=== PATIENT | male | born 1980 | race Two or more races ===

== ENCOUNTER 2018-10-25 18:26 | Emergency (ER) | payer SELFPAY ==
[2018-10-25 19:30] LABS: CHLORIDE,CL 107 mmol/L (98-107); SODIUM,NA 144 mmol/L (136-148)
--- NOTE | 2018-10-25 19:56 | CR ---
INDICATION: Lower abdominal pain 1 month TECHNIQUE: Abdominal radiograph 2 views COMPARISON: None FINDINGS: Bowel: Mild nonspecific gaseous distention of the splenic flexure is noted. A moderate amount of stool is present within the ascending colon with a small amount of stool seen in the rectum. The epigastrium is excluded. Soft tissue: No evidence of pneumoperitoneum present. No suspicious calcifications noted. Bone: Unremarkable for age. IMPRESSION: 1. Unremarkable appearance of the visualized abdomen. Dictated by Mika Bo MD @ 10/25/2018 7:55:17 PM Dictated by: Mika Bo MD @ 10/25/2018 19:55:21 (Electronically Signed)
--- NOTE | 2018-10-25 20:02 | EDM.PDOC ---
ED HPI GENERAL MEDICAL PROBLEM - General Chief Complaint: Abdominal Pain Stated Complaint: PT HAS STOMACH PAINS Time Seen by Provider: 10/25/18 18:40 Source of Information: Reports: Patient History Limitations: Reports: No Limitations - History of Present Illness INITIAL COMMENTS - FREE TEXT/NARRATIVE: Presents reporting a one month history of abdominal pain that comes and goes. He states it's been worsening and he doesn't have a regular doctor so he came in. Also reports constipation with brown formed stool. He has tried nothing for the constipation. No diarrhea, vomiting, nausea, fevers. He has been eating and drinking normally. Otherwise healthy without chronic medical problems. He did have an appendectomy in 2009. lower abdomen Pain Score (Numeric/FACES): 8 - Related Data Allergies Allergy/AdvReac Type Severity Reaction Status Date / Time No Known Allergies Allergy Verified 10/25/18 18:31 Home Meds: Home Meds . [No Known Home Meds] 10/25/18 [History] Past Medical History - Past Surgical History GI Surgical History: Reports: Appendectomy Social & Family History - Family History Family Medical History: Noncontributory - Tobacco Use Smoking Status *Q: Never Smoker - Recreational Drug Use Recreational Drug Use: No ED ROS GENERAL - Review of Systems Review Of Systems: ROS reveals no pertinent complaints other than HPI. ED EXAM, GI/ABD - Physical Exam Exam: See Below Exam Limited By: No Limitations General Appearance: Alert, Mild Distress (Due to pain) Ears: Normal External Exam Nose: Normal Inspection Throat/Mouth: Normal Inspection Head: Atraumatic, Normocephalic Neck: Normal Inspection Respiratory/Chest: No Respiratory Distress, Lungs Clear, Normal Breath Sounds Cardiovascular: Normal Peripheral Pulses, Regular Rate, Rhythm, No Murmur GI/Abdominal Exam: Normal Bowel Sounds, Soft, No Distention, Tender (Lower quadrants particularly been fine) Neurological: Alert, Oriented Psychiatric: Normal Affect, Normal Mood Skin Exam: Warm, Dry, Intact, Normal Color, No Rash Lymphatic: No Adenopathy Course - Vital Signs Last Recorded V/S: Last Vital Signs Temp 36.6 C 10/25/18 18:35 Pulse 64 10/25/18 18:35 Resp 18 10/25/18 18:35 BP 121/69 10/25/18 18:35 Pulse Ox 97 10/25/18 18:35 - Orders/Labs/Meds Orders: Active Orders 24 hr Category Date Time Status Abdomen 2V AP Flat Upright [CR] Stat Exams 10/25/18 18:49 Ordered CBC WITH AUTO DIFF [HEME] Stat Lab 10/25/18 18:49 Ordered CMP [COMPREHENSIVE METABOLIC PN,CMP] [CHEM] Stat Lab 10/25/18 18:49 Ordered Departure - Departure Time of Disposition: 20:02 Disposition: Home, Self-Care 01 Condition: Good Clinical Impression: Abdominal pain - Discharge Information Referrals: PCP,None [Primary Care Provider] - [facility] [Outside] [facility] [Outside] Additional Instructions: 1. No explanation for your symptoms can be found. Your liver and kidney function are good, you are not diabetic, you are not anemic, your electrolytes are good. There is no sign of constipation of your x-ray. Follow-up in the clinic for further evaluation. - My Orders Last 24 Hours: My Active Orders 10/25/18 18:49 Abdomen 2V AP Flat Upright [CR] Stat CBC WITH AUTO DIFF [HEME] Stat CMP [COMPREHENSIVE METABOLIC PN,CMP] [CHEM] Stat - Assessment/Plan Last 24 Hours: My Active Orders 10/25/18 18:49 Abdomen 2V AP Flat Upright [CR] Stat CBC WITH AUTO DIFF [HEME] Stat CMP [COMPREHENSIVE METABOLIC PN,CMP] [CHEM] Stat
== END 2018-10-25 20:09 | disposition home or self-care (01) ==
LOC: MW.ED 18:26
DX: R10.30 Lower abdominal pain, unspecified (principal); Z90.49 Acquired absence of other specified parts of digestive tract
CPT/HCPCS: 36415; 74019; 74019-26; 80053; 81001; 85025; 99284-25